=== PATIENT | female | born 1995 | race Caucasian/White ===

== ENCOUNTER 2017-04-11 00:26 | Emergency (ER) | payer BC ==
[~2017-04-11] VITALS: Ht 170.2 cm; Wt 64.4 kg
[2017-04-11 00:41] VITALS: TEMP 36.8; Ht 170.2 cm; Wt 64.4 kg
[2017-04-11] MEDS ORDERED: SODIUM CHLORIDE 0.9% 1000ML 1,000 ML IV STA (01:03)
[2017-04-11] MEDS ORDERED: ACETAMINOPHEN 500 MG TAB PO STA (01:03)
--- NOTE | 2017-04-11 01:17 | EMERGENCY ROOM VISIT NOTE ---
History Report prepared by Danielleibuday: Maude Mayfield Under the Supervision of: Dr. Ulises Yost M.D. First contact with patient: 00:52 Chief Complaint: HEAD INJURY (MINOR) Stated Complaint: HEADACHE, LOSS OF MEMORY, DIZZINESS History of Present Illness The patient is a 21 year old female who presents to the Emergency Room with complaints of a head injury that occurred a couple of hours ago. The patient states she hit the right side of her face. The patient rates her pain a 6/10 in severity. The patient states that she was smoking marijuana prior to her fall. She notes that she felt light headed before the fall. Her roommates state that they heard a "thump" and ran into the bathroom to see what happened. They note that the patient was awake when they found her. The patient states that she does not remember the fall. None of her roommates experienced the same reaction. The patient denies being drinking any alcohol tonight. She notes her last menstrual cycle was last week. The patient states she is experiencing a headache, nausea, and dizziness. She notes that her front teeth are in pain. She denies any fever, chills, cough, joint pain, neck pain or congestion. The patient denies any past medical problems or medications. Source of History: patient Onset: couple of hours ago Position: head Symptom Intensity: 6/10 Associated Symptoms: + headache, + nausea, No fevers, No chills, No cough, No neck pain Note: Additional symptoms: dizziness. The patient denies any joint pain or congestion. Review of Systems See HPI for pertinent positives and negatives. A total of ten systems were reviewed and were otherwise negative. Past Medical & Surgical No past medical history. Family History No pertinent family history Social History Smoking Status: Never Smoker Alcohol Use: occasionally Drug Use: marijuana Marital Status: single Housing Status: lives with roommate Occupation Status: [employer] Current/Historical Medications Scheduled Control Pills ( Control Pills), 1 TAB PO DAILY Allergies Coded Allergies: No Known Allergies (Unverified , 04/11/17) Physical Exam Vital Signs Date Time Temp Pulse Resp B/P (MAP) Pulse Ox O2 Delivery O2 Flow Rate FiO2 04/11/17 04:31 107/63 04/11/17 04:30 75 13 96 04/11/17 04:22 73 04/11/17 04:15 71 16 96 04/11/17 04:10 120/62 04/11/17 03:06 98 15 96 04/11/17 03:01 111/74 04/11/17 02:56 94 14 99 Room Air 04/11/17 02:41 84 18 96 04/11/17 02:31 114/79 04/11/17 02:26 98 22 94 04/11/17 02:11 99 18 98 04/11/17 02:01 123/94 04/11/17 01:56 79 16 99 04/11/17 01:41 87 19 95 04/11/17 01:31 104/65 04/11/17 01:26 82 16 95 Room Air 04/11/17 01:11 85 04/11/17 01:01 117/73 04/11/17 01:01 86 04/11/17 00:41 36.8 93 18 134/86 96 Room Air Physical Exam GENERAL: Awake, alert, well-appearing, in no distress HENT: Dilated 5 mm pupils that are reactive, no nystagmus, dry mucus membranes, mild erythema to right zygomatic and inferior orbit with no hematoma, no crepitus, dentition is intact with slight abrasion to upper front teeth enamel , no malocclusion, no hemotympanum, no septal hematoma, no epistaxis. EYES: Normal conjunctiva. Sclera non-icteric. NECK: Supple. No nuchal rigidity. FROM. No JVD. RESPIRATORY: Clear to auscultation. CARDIAC: Regular rate, normal rhythm. Extremities warm and well perfused. Pulses equal. ABDOMEN: Soft, non-distended. No tenderness to palpation. No rebound or guarding. No masses. RECTAL: Deferred. MUSCULOSKELETAL: Chest examination reveals no tenderness. The back is symmetrical on inspection without obvious abnormality. There is no CVA tenderness to palpation. No joint edema. CTL-spine non tender and no step offs. LOWER EXTREMITIES: Calves are equal size bilaterally and non-tender. No edema. No discoloration. NEURO: Normal sensorium. No sensory or motor deficits noted. Cerebellar intact finger to nose, no rigidity. No clonus. SKIN: No rash or jaundice noted. Medical Decision & Procedures ER Provider Diagnostic Interpretation: Facial bone XR: preliminary read. No gross fractures or deformities. Laboratory Results 04/11/17 01:10 Red Blood Count 4.41, Mean Corpuscular Volume 87.5, Mean Corpuscular Hemoglobin 29.3, Mean Corpuscular Hemoglobin Concent 33.4, Mean Platelet Volume 9.8, Neutrophils (%) (Auto) 72.1, Lymphocytes (%) (Auto) 20.2, Monocytes (%) (Auto) 7.0, Eosinophils (%) (Auto) 0.2, Basophils (%) (Auto) 0.2, Neutrophils # (Auto) 8.69, Lymphocytes # (Auto) 2.44, Monocytes # (Auto) 0.84, Eosinophils # (Auto) 0.02, Basophils # (Auto) 0.03 04/11/17 01:10 Test 04/11/17 01:10 White Blood Count 12.06 K/uL (4.8-10.8) Red Blood Count 4.41 M/uL (4.2-5.4) Hemoglobin 12.9 g/dL (12.0-16.0) Hematocrit 38.6 % (37-47) Mean Corpuscular Volume 87.5 fL (80-100) Mean Corpuscular Hemoglobin 29.3 pg (25-34) Mean Corpuscular Hemoglobin Concent 33.4 g/dl (32-36) Platelet Count 263 K/uL (130-400) Mean Platelet Volume 9.8 fL (7.4-10.4) Neutrophils (%) (Auto) 72.1 % Lymphocytes (%) (Auto) 20.2 % Monocytes (%) (Auto) 7.0 % Eosinophils (%) (Auto) 0.2 % Basophils (%) (Auto) 0.2 % Neutrophils # (Auto) 8.69 K/uL (1.4-6.5) Lymphocytes # (Auto) 2.44 K/uL (1.2-3.4) Monocytes # (Auto) 0.84 K/uL (0.11-0.59) Eosinophils # (Auto) 0.02 K/uL (0-0.5) Basophils # (Auto) 0.03 K/uL (0-0.2) RDW Standard Deviation 41.4 fL (36.4-46.3) RDW Coefficient of Variation 12.7 % (11.5-14.5) Immature Granulocyte % (Auto) 0.3 % Immature Granulocyte # (Auto) 0.04 K/uL (0.00-0.02) Anion Gap 7.0 mmol/L (3-11) Est Creatinine Clear Calc Drug Dose 103.9 ml/min Estimated GFR () 116.0 Estimated GFR (Non- 100.1 BUN/Creatinine Ratio 19.9 (10-20) Calcium Level 8.7 mg/dl (8.5-10.1) Human Chorionic Gonadotropin, Qual NEG (NEG) Laboratory results reviewed by me Medications Administered Medications (Trade) Dose Ordered Sig/Maria T Route Start Time Stop Time Status Last Admin Dose Admin Sodium Chloride 1,000 ml @ 999 mls/hr Q1H1M STAT IV 04/11/17 01:03 04/11/17 02:03 DC 04/11/17 01:45 999 MLS/HR Acetaminophen (Tylenol Tab) 1,000 mg NOW STAT PO 04/11/17 01:03 04/11/17 01:05 DC 04/11/17 01:50 1,000 MG ECG Indication: syncope Rate (beats per minute): 74 Rhythm: normal sinus Findings: no acute ischemic change, other (normal intervals, specific CA 122, WRS 80, QTC 417) ED Course 0052: The patient was evaluated in room B7. A complete history and physical exam was performed. 0103: Tylenol Tab 1000 mg PO, Sodium Chloride 1000 ml @ 999 mls/hr IV. Medical Decision I reviewed the patient's past medical history, medications, and the nursing notes as described above. Differential diagnosis includes but is not limited to: vasovagal vs orthostatic syncope, accidental polysubstance OD, dehydration, electrolyte abnormality. The patient is a 21 y/o woman who presents to the ED with syncopal episode after smoking marijuana per HPI. On arrival the patient is in NAD, AFVSS. Pupils 5mm bilateral and reactive. No rigidity, clonus. Skin warm and dry. EKG unremarkable with normal intervals. Labs unremarkable. Patient observed for several hours until sober and reassessed. No neck pain and acting normally. No indication for CT at this time. Xray done to r/o gross facial fx and preliminary interpretation is negative. Findings and plan for follow-up reviewed with patient. Patient agreeable and d/c'd per discharge instructions. Medication Reconcilliation Current Medication List: was personally reviewed by me Blood Pressure Screening Patient's blood pressure: Normal blood pressure Impression Primary Impression: Closed head injury Additional Impression: Concussion Scribe Attestation The scribe's documentation has been prepared under my direction and personally reviewed by me in its entirety. I confirm that the note above accurately reflects all work, treatment, procedures, and medical decision making performed by me. Departure Information Dispostion Home / Self-Care Patient Instructions ED Concussion, ED Head Injury Closed, My [facility] Additional Instructions Please follow up with S in the next 1-3 days for re-evaluation. You likely have a mild concussion. Otherwise, your exam, EKG, xray, and lab results did not show signs of an emergent condition at this time. Drink plenty of fluids to ensure hydration. Acetaminophen or Ibuprofen for pain as needed. Avoid sensory stimulus to minimize concussion symptoms if symptoms return or become worse. Return to the emergency department for worsening symptoms as described in the accompanying instructions. Problem Qualifiers
[2017-04-11 01:23] LABS: BASO % 0.2 %; BASO ABS # 0.03 K/uL (0-0.2); COMPLETE YES; EOS % 0.2 %; HEMATOCRIT 38.6 % (37-47); IG% 0.3 %; LYMPH % 20.2 %; LYMPH ABS # 2.44 K/uL (1.2-3.4); MEAN CELL VOLUME 87.5 fL (80-100); MEAN CORPUSCULAR HEMOGLOBIN 29.3 pg (25-34); MEAN CORPUSCULAR HGB CONC 33.4 g/dl (32-36); MEAN PLATELET VOLUME 9.8 fL (7.4-10.4); NEUT % 72.1 %; PLATELET COUNT 263 K/uL (130-400); RED BLOOD COUNT 4.41 M/uL (4.2-5.4); WHITE BLOOD COUNT 12.06 K/uL (4.8-10.8)
[2017-04-11 01:51] LABS: BUN/CREATININE RATIO 19.9 (10-20); CALCIUM 8.7 mg/dl (8.5-10.1); CREATININE 0.84 mg/dl (0.60-1.20); POTASSIUM 4.4 mmol/L (3.5-5.1)
[2017-04-11 01:55] LABS: PREG INTERNAL NEGATIVE QC NEG CLEAR BACKGROUND; PREG INTERNAL POSITIVE QC POS CONTROL LINE
[2017-04-11] MEDS ORDERED: BCPILLS PO (02:34)
[2017-04-11 04:30] VITALS: PULSE 75; O2SAT 96
[2017-04-11 04:31] VITALS: BP 107/63
--- NOTE | 2017-04-11 06:47 | DIAGNOSTIC IMAGING REPORT ---
FACIAL BONES MIN 3 VIEWS RTN CLINICAL HISTORY: Facial pain status post trauma COMPARISON STUDY: No previous studies for comparison. FINDINGS: No air-fluid levels are visualized. There is no orbital emphysema. No fractures are visualized on conventional radiographic imaging. IMPRESSION: No facial fractures identified on conventional radiographic imaging Electronically signed by: Jp Gomez M.D. 04/11/2017 6:46 AM Dictated Date/Time: 04/11/2017 6:45 AM
== END 2017-04-11 04:42 | disposition home or self-care (01) ==
LOC: C.EDB 00:28
DX: S09.90XA Unspecified injury of head, initial encounter (principal); S06.0X0A Concussion without loss of consciousness, initial encounter; W19.XXXA Unspecified fall, initial encounter